=== PATIENT | female | born 1985 | race Two or more races ===

== ENCOUNTER 2020-06-28 00:12 | Emergency (ER) | payer SELFPAY ==
[~2020-06-28] VITALS: Ht 152.4 cm; Wt 86.0 kg
[2020-06-28] MEDS ORDERED: DIPH25CA58 PO (00:56)
[2020-06-28] MEDS ORDERED: FAMO40TA57 PO (00:56)
[2020-06-28] MEDS ORDERED: PRED20TA PO (00:56)
--- NOTE | 2020-06-28 00:56 | PHYS DOC ---
Past Medical History Past Medical History: No Pertinent History Past Surgical History: Smoking Status: Never Smoker Alcohol Use: Occasionally General Adult EDM: Chief Complaint: ALLERGIC REACTION HPI: HPI: Patient is a 34 year old female who presented to ER today for evaluation of allergic reaction to eating shrimp. Patient ate some shrimp at 6 PM yesterday, she woke up with itchy and swelling all over her body. Patient denies any trouble swallowing, denies trouble breathing. Patient says she has some allergic reaction to eating shrimp in the past but is very minor. Patient denies eating any other food denies beside the Shrimp Review of Systems: Review of Systems: Constitutional: Denies fever or chills. [] Eyes: Denies change in visual acuity. [] HENT: Denies nasal congestion or sore throat. [] Respiratory: Denies cough or shortness of breath. [] Cardiovascular: Denies chest pain or edema. [] GI: Denies abdominal pain, nausea, vomiting, bloody stools or diarrhea. [] : Denies dysuria. [] Musculoskeletal: Denies back pain or joint pain. [] Integument: positive for rash and itching Neurologic: Denies headache, focal weakness or sensory changes. [] Endocrine: Denies polyuria or polydipsia. [] Lymphatic: Denies swollen glands. [] Psychiatric: Denies depression or anxiety. [] Heart Score: Risk Factors: Risk Factors: DM, Current or recent (<one month) smoker, HTN, HLP, family history of CAD, obesity. Risk Scores: Score 0 - 3: 2.5% MACE over next 6 weeks - Discharge Home Score 4 - 6: 20.3% MACE over next 6 weeks - Admit for Clinical Observation Score 7 - 10: 72.7% MACE over next 6 weeks - Early Invasive Strategies Current Medications: Current Medications Medications (Trade) Dose Ordered Sig/Lorena Start Time Stop Time Status Last Admin Dose Admin Diphenhydramine HCl (Benadryl) 50 mg 1X ONCE 06/28/20 01:00 06/28/20 01:01 06/28/20 00:37 50 MG Famotidine (Pepcid) 20 mg 1X ONCE 06/28/20 01:00 06/28/20 01:01 06/28/20 00:37 20 MG Methylprednisolone Sodium Succinate (SOLU-Medrol 125MG VIAL) 125 mg 1X ONCE 06/28/20 01:00 06/28/20 01:01 06/28/20 00:37 125 MG Allergies: Allergies: Allergies Coded Allergies Type Severity Reaction Last Updated Verified No Known Drug Allergies 06/28/20 No Physical Exam: PE: Constitutional: Well developed, well nourished, no acute distress, non-toxic appearance. [] HENT: Normocephalic, atraumatic, bilateral external ears normal, oropharynx moist, no oral exudates, nose normal. [] Eyes: PERRLA, EOMI, conjunctiva normal, no discharge. [] Neck: Normal range of motion, no tenderness, supple, no stridor. [] Cardiovascular:Heart rate regular rhythm, no murmur [] Lungs & Thorax: Bilateral breath sounds clear to auscultation [] Abdomen: Bowel sounds normal, soft, no tenderness, no masses, no pulsatile masses. [] Skin: Warm, dry, diffuse wheal, skin rash all over body, trunk, neck, face, no swelling of tongue or lip. Back: No tenderness, no CVA tenderness. [] Extremities: No tenderness, no cyanosis, no clubbing, ROM intact, no edema. [] Neurologic: Alert and oriented X 3, normal motor function, normal sensory function, no focal deficits noted. [] Psychologic: Affect normal, judgement normal, mood normal. [] Current Patient Data: Vital Signs: Vital Signs Date Time Temp Pulse Resp B/P (MAP) Pulse Ox O2 Delivery O2 Flow Rate FiO2 06/28/20 00:15 98.4 90 20 138/82 (100) 97 Room Air 98.4 EKG: EKG: [] Radiology/Procedures: Radiology/Procedures: [] Course & Med Decision Making: Course & Med Decision Making Pertinent Labs and Imaging studies reviewed. (See chart for details) Patient is a 34-year-old female who was evaluated in the ER due to allergic reaction to swelling. Patient was given steroids and Benadryl in ER, she feels much better. Patient will be discharged home, she was instructed not to eat shrimp in the future. Dragon Disclaimer: Dragon Disclaimer: This electronic medical record was generated, in whole or in part, using a voice recognition dictation system. Departure Departure Impression: Primary Impression: Food allergic dermatitis Disposition: 01 HOME, SELF-CARE Condition: IMPROVED Referrals: NO PCP (PCP) follow up with your doctor as needed Patient Instructions: Food Allergy Additional Instructions: Thank you for visiting our Emergency Department. We appreciate you trusting us with your care. If any additional problems come up don't hesitate to return to visit us. Please follow up with your primary care provider so they can plan additional care if needed and know about the problem that you had. If symptoms worsen come back to the Emergency Department. Any concerning symptoms that start such as chest pain, shortness of air, weakness or numbness on one side of the body, running high fevers or any other concerning symptoms return to the ER. DO NOT EAT SHRIMP FROM NOW ON! Scripts Diphenhydramine Hcl (BENADRYL) 25 Mg Capsule 1 CAP PO Q4HRS PRN for ITCHING for 5 Days, #30 CAP 0 Refills Prov: TAVARES BRANDT DO 06/28/20 Famotidine (PEPCID) 40 Mg Tablet 40 MG PO HS for 5 Days, #5 TAB Prov: TAVARES BRANDT DO 06/28/20 Prednisone (PREDNISONE) 20 Mg Tablet 2 TAB PO DAILY for 5 Days, #10 TAB Prov: TAVARES BRANDT DO 06/28/20 Justicifation of Admission Dx: Justifications for Admission: Justification of Admission Dx: N/A TAVARES BRANDT DO Jun 28, 2020 00:56
[2020-06-28] MEDS ORDERED: methylPREDNISolone SOD SUCC PF 125 MG/2 ML VIAL. IM ONE (01:00)
[2020-06-28] MEDS ORDERED: FAMOTIDINE 20 MG TABLET. PO ONE (01:00)
[2020-06-28] MEDS ORDERED: diphenhydrAMINE 50 MG/ML VIAL IM ONE (01:00)
[2020-06-28] MEDS ORDERED: EPINEPHrine 1 MG/ML VIAL IM ONE (02:15)
[2020-06-28 02:58] VITALS: BP 144/66
== END 2020-06-28 03:00 | disposition home or self-care (01) ==
LOC: ER 00:12
DX: L23.6 Allergic contact dermatitis due to food in contact with the skin (principal); R21 Rash and other nonspecific skin eruption; Z98.890 Other specified postprocedural states
CPT/HCPCS: 96372; 99285; J0171; J1200; J2930